=== PATIENT | male | born 1960 | race Caucasian/White ===

== ENCOUNTER 2019-04-09 16:19 | Inpatient (IN) ==
[2019-04-09] MEDS: *HR* Metformin 500 MG TABLET PO SCH (21:22)
[2019-04-09] MEDS: Gabapentin 300 MG CAPSULE PO SCH (21:22)
[2019-04-09] MEDS: *HR* OxyCODONE Immed Rel 5 MG TABLET PO PRN (21:26)
--- NOTE | 2019-04-10 08:18 | Internal Med History&Physical ---
Date of Encounter: 04/10/19 Time of Encounter: 07:45 Assessment and Plan (1) Diverticulitis Current visit: No Status: Acute Status post resection with colostomy. Augmentin with probiotic will be given for 7 days as per discharge summary from [facility]. (2) Hypertension Current visit: Yes Status: Chronic Continue Cozaar Qualifiers: Hypertension type: essential hypertension Qualified Code(s): I10 - Essential (primary) hypertension (3) SRINIVAS (obstructive sleep apnea) Current visit: Yes Status: Chronic Continue CPAP at bedtime (4) DM type 2 (diabetes mellitus, type 2) Current visit: Yes Status: Chronic Continue Trulicity, Jardiance, and Actos. Qualifiers: Diabetes mellitus long term care pharmacist insulin use: without fci use Diabetes mellitus complication status: without complication Qualified Code(s): E11.9 - Type 2 diabetes mellitus without complications (5) Hypothyroidism Current visit: Yes Status: Chronic Continue Synthroid Qualifiers: Hypothyroidism type: unspecified Qualified Code(s): E03.9 - Hypothyroidism, unspecified (6) Hyperlipidemia Current visit: Yes Status: Chronic Continue atorvastatin Qualifiers: Hyperlipidemia type: unspecified Qualified Code(s): E78.5 - Hyperlipidemia, unspecified (7) B12 deficiency Current visit: Yes Status: Chronic Continue B12 supplementation. Internal Medicine - H&P: HPI Chief complaint: Perforated diverticulum Admitted From: Hospital to Hospital Transfer Plans for Post Hospital Care: Home History of present illness: Mr. Odell is a 58 year old male who was transferred to [facility] swing bed after [facility] stay April 02- after presenting with perforated diverticulitis. He underwent sigmoid resection and colostomy formation. He reports approximately 15 cm of colon was resected. His postop course was unremarkable and he was discharged to [facility] swing bed for rehabilitation therapy prior to returning to independent living. GI history is pertinent for remote appendectomy. He has had 3 colonoscopies with most recent one 2016. No significant pathology other than diverticular disease has been seen. He denies disorders of his liver gallbladder or exocrine pancreas. Past Med Surg Social Fam HX - Past Medical History Medical history: arthritis, diabetes, hyperlipidemia, hypertension, other Additional medical history: SRINIVAS, neuropathy Psychiatric history: no psych history - Past Surgical History Surgical History: appendectomy Additional surgical history: rotator cuff repair bilat - Social History Smoking Status: Former smoker Smokeless Tobacco Status: No Alcohol use: none Drug use: none - Family History Mother Living Status: Hx Family Neurologic Disorders: Yes Internal Medicine - H&P: Meds Ascorbate Calcium [Vitamin C] 500 mg PO DAILY 04/11/16 [History] Aspirin 81 mg PO DAILY 04/11/16 [History] Pravastatin Sodium [Pravachol] 80 mg PO DAILY 04/11/16 [History] Empagliflozin [Jardiance] 25 mg PO DAILY 08/27/17 [History] Cyanocobalamin (B-12) [Vitamin B12] 1,000 mcg IM PRADO 04/04/19 [History] Dulaglutide [Trulicity] 1.5 mg SQ PRADO 04/04/19 [History] Irbesartan [Avapro] 300 mg PO DAILY 04/04/19 [History] Levothyroxine [Synthroid] 175 mcg PO QAM 04/04/19 [History] Meloxicam 15 mg PO DAILY 04/04/19 [History] Metformin HCl [Fortamet] 1,000 mg PO BID 04/04/19 [History] Nebivolol HCl [Bystolic] 10 mg PO DAILY 04/04/19 [History] Pioglitazone HCl 45 mg PO DAILY 04/04/19 [History] Gabapentin [Neurontin] 300 mg PO TID 30 Days #90 capsule 04/09/19 [Rx] Levothyroxine [Synthroid] 150 mcg PO 0630 30 Days #30 tablet 04/09/19 [Rx] Losartan [Cozaar] 50 mg PO DAILY 30 Days #30 tablet 04/09/19 [Rx] Nebivolol [Bystolic] 5 mg PO DAILY 30 Days #30 tablet 04/09/19 [Rx] OxyCODONE Immed Rel [Roxicodone 5 MG] 5 mg PO Q6HR PRN 7 Days #28 tablet 04/09/19 [Rx] Allergy/AdvReac Type Severity Reaction Status Date / Time Sulfa (Sulfonamide Allergy Difficulty Verified 04/04/19 16:58 Antibiotics) Breathing All Systems PM: A 10-system review of systems was performed and is negative for pertinent findings except as documented above in the HPI. Review of systems: Gen.: He states his weight has increased approximately 13 pounds in the past year Cardiovascular: He has history of hypertension but denies ME heart failure angina DVT or pulmonary embolus Respiratory: He smoked from age [age] up to 2 and half packs per day. He denies chronic lung disease. He has lung nodules which have been stable on follow-up exam. He has SRINIVAS and uses CPAP at bedtime GI: As per history of present illness : He has had microscopic hematuria with workup showing no significant pathology. He denies other disorders of his kidneys bladder or prostate Neurologic: He denies large distribution strokes or seizures. Endocrine: He was diagnosed with DM 2 approximately 2017. 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 He has history of B12 deficiency. He denies internal malignancies or other blood disorders. Psychiatric: He denies anxiety depression or other mental health issues [place] skeletal: He has DJD but denies gout or other bone joint or muscle disorders. - Constitutional Vitals: Temp Pulse Resp BP Pulse Ox 98.1 F 71 20 135/79 92 04/10/19 06:42 04/10/19 06:42 04/10/19 06:42 04/10/19 06:42 04/10/19 06:42 Exam: Gen.: He is a well-developed well-nourished male resting comfortably in bed who appears in no acute distress HEENT: Head is atraumatic and normocephalic. Eyes: EOMI. There is no scleral icterus. Mouth: Mucosa is moist. Neck: Supple and nontender. There is no thyromegaly or adenopathy noted. Heart: Regular without murmurs gallops or ectopics Lungs: No wheezes or crackles are heard. Abdomen: He has a colostomy with fecal material in the collection bag in the left mid abdominal area. There are nestor closing the surgical incision site with no significant drainage noted. The abdomen is slightly tender to palpat ion. Extremities: There is no cyanosis edema or clubbing noted. Dorsalis pedis and posterior tibial pulses are 1-2 over 2 bilaterally. He has significant resolving ecchymosis of his left medial forearm area which he reports is due to IV infiltration at [facility]. Neurologic: Mental status: He is talkative and a good historian. Cranial nerves: Smile is symmetric. Forehead wrinkles bilaterally. Tongue protrudes midline. EOMI. Motor: There is no pronator drift. Cerebellar: Finger to nose is intact bilaterally. Skin: Warm and dry
[2019-04-10] MEDS: *HR* Pioglitazone 15 MG TABLET PO SCH (08:24)
[2019-04-10] MEDS: Aspirin 81 MG TAB.CHEW PO SCH (08:25)
[2019-04-10] MEDS: *HR* Metformin 500 MG TABLET PO SCH ×2 (08:25→16:48)
[2019-04-10] MEDS: Gabapentin 300 MG CAPSULE PO SCH ×3 (08:25→20:33)
[2019-04-10] MEDS: Ascorbic Acid 500 MG TABLET PO SCH (08:25)
[2019-04-10] MEDS: *HR* OxyCODONE Immed Rel 5 MG TABLET PO PRN ×3 (08:26→20:33)
[2019-04-10] MEDS: Empagliflozin [Jardiance] 25 MG PO SCH (08:35)
[2019-04-10] MEDS: Lactobacillus 1 EACH CAP.SPRINK PO SCH ×2 (08:35→20:33)
[2019-04-10] MEDS: BYSTOLIC 10MG PO SCH (08:36)
[2019-04-10] MEDS ORDERED: IRBESARTAN 300 MG PO SCH (09:00)
[2019-04-10] MEDS ORDERED: *HR* Dextrose 50 % in Water (Syg) 50 ML SYRINGE IVP PRN (11:38)
[2019-04-10] MEDS ORDERED: D5% in Water 1,000 ML IVC PRN (11:38)
[2019-04-10] MEDS ORDERED: Dextrose Gel 15 GM/37.5 ML TUBE PO PRN ×2 (11:38)
[2019-04-10] MEDS: Insulin LISPRO 300 UNITS/3 ML VIAL SQ SCH ×3 (12:14→20:37)
[2019-04-11] MEDS ORDERED: Cyanocobalamin (B-12) 1,000 MCG/ML VIAL IM SCH (09:00)
[2019-04-11] MEDS: *HR* Pioglitazone 15 MG TABLET PO SCH (09:19)
[2019-04-11] MEDS: Ascorbic Acid 500 MG TABLET PO SCH (09:20)
[2019-04-11] MEDS: Lactobacillus 1 EACH CAP.SPRINK PO SCH ×2 (09:20→20:35)
[2019-04-11] MEDS: Gabapentin 300 MG CAPSULE PO SCH ×3 (09:20→20:35)
[2019-04-11] MEDS: Aspirin 81 MG TAB.CHEW PO SCH (09:20)
[2019-04-11] MEDS: Empagliflozin [Jardiance] 25 MG PO SCH (09:20)
[2019-04-11] MEDS: *HR* Metformin 500 MG TABLET PO SCH ×2 (09:20→16:37)
[2019-04-11] MEDS: BYSTOLIC 10MG PO SCH (09:21)
[2019-04-11] MEDS: Insulin LISPRO 300 UNITS/3 ML VIAL SQ SCH ×4 (09:23→20:12)
--- NOTE | 2019-04-11 11:59 | Internal Med Progress Note ---
Date of Encounter: 04/11/19 Time of Encounter: 11:55 - Assessment and plan (1) Diverticulitis Current Visit: No Status: Acute Assessment and plan: Feeling well from surgery fission looks clean and dry colostomy seems functional low redness is can seems reactional but we will get a CBC with differential in the morning. Into the Augmentin pain is controlled. (2) B12 deficiency Current Visit: Yes Status: Chronic Assessment and plan: We will check a B12 level continue supplementation he apparently schizoid B12 shot every week (3) Numbness in left leg Current Visit: Yes Status: Acute Assessment and plan: Busch surgically related. B12 and folate x-ray has building blocks until it. (4) Hypertension Current Visit: Yes Status: Chronic Assessment and plan: Controlled continue losartan Qualifiers: Hypertension type: essential hypertension Qualified Code(s): I10 - Essential (primary) hypertension (5) DM type 2 (diabetes mellitus, type 2) Current Visit: Yes Status: Chronic Assessment and plan: Controlled continue metformin follow-up labs continue Actos Qualifiers: Diabetes mellitus superintendent marine oil terminal insulin use: without skilled nursing use Diabetes m ellitus complication status: without complication Qualified Code(s): E11.9 - Type 2 diabetes mellitus without complications (6) Hypothyroidism Current Visit: Yes Status: Chronic Assessment and plan: Stable continue levothyroxin Qualifiers: Hypothyroidism type: unspecified Qualified Code(s): E03.9 - Hypothyroidism, unspecified (7) Hyperlipidemia Current Visit: Yes Status: Chronic Assessment and plan: Stable continue atorvastatin Qualifiers: Hyperlipidemia type: unspecified Qualified Code(s): E78.5 - Hyperlipidemia, unspecified - Time Spent With Patient 25 - 35 minutes - Subjective Interval history: 58-year-old male presented for swing bed after having a colectomy about 8 days ago because of a perforated diverticulum. His a swing bed but he noticed when he is walking today unless on the left lateral thigh. The area was nontender he can walk she surprised that he can feel the area. Nurse mentioned he had a little more drainage. And he has a little redness in that area on the skin. Is having stool on this colostomy. His incisions are clean and dry. His been on Neurontin for peripheral neuropathy and he might not noticed this lack of sensation. It is pride been there since surgery. We will get a B12 and folate level make sure he has building blocks needs to repair it. Answers questions concerns addressed. - Constitutional Vitals: Temp Pulse Resp BP Pulse Ox 98.1 F 69 16 118/69 94 04/11/19 06:47 04/11/19 06:47 04/11/19 06:47 04/11/19 06:47 04/11/19 06:47 Exam: General: Alert and oriented, no acute distress Lungs: Clear to auscultation bilaterally without wheezing or crackles Heart: Regular rate and rythms without murmer or rubs Abdomen: Soft, nontender, colostomy stool in the incision was clean and dry with nestor. Decreased bowel sounds. Extremities: no edema, slight redness in the skin just above the hip with normal sensation no tenderness Route low reactive to what is going on.. Consult Discharge Plan - Plan Referrals: Stewart Velasquez DO [Primary Care Provider] - 1 week
[2019-04-11] MEDS ORDERED: *HR* Dextrose 50 % in Water (Vial) 50 ML VIAL IVP PRN (13:15)
[2019-04-11 13:34] LABS: Folate 21.2 ng/mL (3.0-16.0)
[2019-04-11] MEDS ORDERED: Dulaglutide [Trulicity] 1.5 MG SQ SCH (18:44)
[2019-04-12 05:40] LABS: Basophils # 0.1 K/mcL (0.0-0.2); Basophils % 0.8 %; Eosinophils # 0.3 K/mcL (0.0-0.6); Eosinophils % 2.3 %; Hematocrit 42.9 % (37.5-50.1); Hemoglobin 14.1 g/dL (12.9-16.9); Immature Granulocytes % 2.6 % (0-4); Lymphocytes # 2.1 K/mcL (0.6-4.6); Lymphocytes % 15.6 %; Mean Corpuscular HGB Conc 32.9 g/dL (31.6-35.5); Mean Corpuscular Hemoglobin 29.4 pg (28.0-33.3); Mean Corpuscular Volume 89.6 fL (83.0-100.0); Mean Platelet Volume 9.3 fL (9.4-12.4); Monocytes # 0.9 K/mcL (0.0-1.3); Monocytes % 6.3 %; Neutrophils # 9.9 K/mcL (1.6-8.9); Platelet Count 317 K/mcL (140-400); Red Blood Count 4.79 M/mcL (4.19-5.50); Red Cell Distribution Width 12.3 % (11.5-14.5); Segmented Neutrophils % 72.4 %; White Blood Count 13.7 K/mcL (4.3-11.1)
[2019-04-12 06:03] LABS: BUN/Creatinine Ratio 22 (6-26); Blood Urea Nitrogen 18 mg/dL (8-23); Calcium 9.3 mg/dL (8.6-10.3); Carbon Dioxide 27 mEq/L (23-29); Chloride 98 mEq/L (98-107); Glucose 154 mg/dL (70-105); Osmolality,Calculated 283 (280-300); Potassium 4.3 mEq/L (3.5-5.1); Sodium 134 mEq/L (136-145); eGFR For African Americans > 60 (> 60); eGFR For Non-African Americans > 60 (> 60)
--- NOTE | 2019-04-12 09:41 | Internal Med Progress Note ---
Date of Encounter: 04/12/19 Time of Encounter: 09:25 - Assessment and plan (1) Diverticulitis Current Visit: No Status: Acute Assessment and plan: April 12. Status post resection with colostomy. Continue Augmentin and probiotic. (2) Hypertension Current Visit: Yes Status: Chronic Assessment and plan: April 12. Continue Cozaar Qualifiers: Hypertension type: essential hypertension Qualified Code(s): I10 - Essential (primary) hypertension (3) SRINIVAS (obstructive sleep apnea) Current Visit: Yes Status: Chronic Assessment and plan: April 12. Continue CPAP at at bedtime (4) DM type 2 (diabetes mellitus, type 2) Current Visit: Yes Status: Chronic Assessment and plan: April 12. Continue Trulicity, Jardiance, and Actos Qualifiers: Diabetes mellitus clinical pathologist insulin use: without clinical pathologist use Diabetes mellitus complication status: without complication Qualified Code(s): E11.9 - Type 2 diabetes mellitus without complications (5) Hypothyroidism Current Visit: Yes Status: Chronic Assessment and plan: April 12. Continue Synthroid. Qualifiers: Hypothyroidism type: unspecified Qualified Code(s): E03.9 - Hypothyroidism, unspecified (6) Hyperlipidemia Current Visit: Yes Status: Chronic Assessment and plan: April 12. Continue atorvastatin Qualifiers: Hyperlipidemia type: unspecified Qualified Code(s): E78.5 - Hyperlipidemia, unspecified (7) B12 deficiency Current Visit: Yes Status: Chronic Assessment and plan: April 12. Continue B12 injection weekly. (8) Meralgia paraesthetica Current Visit: Yes Status: Acute Assessment and plan: April 12. I explained to him this is not dangerous. Continue Mobic and Neurontin. Qualifiers: Laterality: left Qualified Code(s): G57.12 - Meralgia paresthetica, left lower limb - Subjective Interval history: April 12. He complains of burning in his left lateral thigh. He reports good ostomy output yesterday. - Constitutional Vitals: Temp Pulse Resp BP Pulse Ox 98.0 F 69 18 127/74 94 04/12/19 06:06 04/12/19 06:06 04/12/19 06:06 04/12/19 06:06 04/12/19 06:06 Exam: He is sitting in a chair at bedside resting currently. PRISCILA drain site shows slight erythema without significant drainage. Staple line shows no drainage. I reviewed his medications and lab results. Internal Medicine: Result - Labs CBC & Chem 7: 04/12/19 04:48 04/12/19 04:48 Labs: Short CBC 04/12/19 Range/Units 04:48 WBC 13.7 H (4.3-11.1) K/mcL Hgb 14.1 (12.9-16.9) g/dL Hct 42.9 (37.5-50.1) % Plt Count 317 D (140-400) K/mcL Neutrophils # 9.9 H (1.6-8.9) K/mcL BMP 04/12/19 04:48 Sodium 134 L Potassium 4.3 Chloride 98 Carbon Dioxide 27 BUN 18 Creatinine 0.83 Glucose 154 H Calcium 9.3 Consult Discharge Plan - Plan Referrals: Stewart Velasquez DO [Primary Care Provider] - 1 week
[2019-04-12] MEDS: BYSTOLIC 10MG PO SCH (09:47)
[2019-04-12] MEDS: Empagliflozin [Jardiance] 25 MG PO SCH (09:47)
[2019-04-12] MEDS: *HR* Pioglitazone 15 MG TABLET PO SCH (09:49)
[2019-04-12] MEDS: Gabapentin 300 MG CAPSULE PO SCH ×3 (09:49→20:45)
[2019-04-12] MEDS: Lactobacillus 1 EACH CAP.SPRINK PO SCH ×2 (09:50→20:45)
[2019-04-12] MEDS: *HR* Metformin 500 MG TABLET PO SCH ×2 (09:50→17:03)
[2019-04-12] MEDS: Insulin LISPRO 300 UNITS/3 ML VIAL SQ SCH ×4 (09:50→21:00)
[2019-04-12] MEDS: Ascorbic Acid 500 MG TABLET PO SCH (09:50)
[2019-04-12] MEDS: Aspirin 81 MG TAB.CHEW PO SCH (09:50)
[2019-04-12 09:55] LABS: Folate > 22.3 ng/mL (3.0-16.0); Vitamin B12 > 1500 pg/mL (250-1100)
[2019-04-13] MEDS: Insulin LISPRO 300 UNITS/3 ML VIAL SQ SCH ×4 (07:47→20:06)
[2019-04-13] MEDS: Ascorbic Acid 500 MG TABLET PO SCH (07:57)
[2019-04-13] MEDS: Gabapentin 300 MG CAPSULE PO SCH ×3 (07:58→19:56)
[2019-04-13] MEDS: *HR* Metformin 500 MG TABLET PO SCH ×2 (07:58→16:33)
[2019-04-13] MEDS: Lactobacillus 1 EACH CAP.SPRINK PO SCH ×2 (07:58→19:56)
[2019-04-13] MEDS: *HR* Pioglitazone 15 MG TABLET PO SCH (07:58)
[2019-04-13] MEDS: Aspirin 81 MG TAB.CHEW PO SCH (07:58)
[2019-04-13] MEDS: Empagliflozin [Jardiance] 25 MG PO SCH (07:59)
[2019-04-13] MEDS: *HR* OxyCODONE Immed Rel 5 MG TABLET PO PRN (20:54)
[2019-04-14 06:12] LABS: Basophils # 0.1 K/mcL (0.0-0.2); Basophils % 0.8 %; Eosinophils # 0.3 K/mcL (0.0-0.6); Eosinophils % 2.8 %; Hematocrit 43.8 % (37.5-50.1); Hemoglobin 14.2 g/dL (12.9-16.9); Immature Granulocytes % 2.7 % (0-4); Lymphocytes # 2.8 K/mcL (0.6-4.6); Lymphocytes % 23.6 %; Mean Corpuscular HGB Conc 32.4 g/dL (31.6-35.5); Mean Corpuscular Hemoglobin 29.2 pg (28.0-33.3); Mean Corpuscular Volume 90.1 fL (83.0-100.0); Mean Platelet Volume 9.6 fL (9.4-12.4); Monocytes # 0.8 K/mcL (0.0-1.3); Neutrophils # 7.6 K/mcL (1.6-8.9); Platelet Count 396 K/mcL (140-400); Red Blood Count 4.86 M/mcL (4.19-5.50); Red Cell Distribution Width 12.4 % (11.5-14.5); Segmented Neutrophils % 63.1 %
[2019-04-14] MEDS: Insulin LISPRO 300 UNITS/3 ML VIAL SQ SCH ×4 (08:18→20:48)
[2019-04-14] MEDS: Ascorbic Acid 500 MG TABLET PO SCH (08:20)
[2019-04-14] MEDS: Aspirin 81 MG TAB.CHEW PO SCH (08:20)
[2019-04-14] MEDS: Gabapentin 300 MG CAPSULE PO SCH ×3 (08:20→20:47)
[2019-04-14] MEDS: *HR* Pioglitazone 15 MG TABLET PO SCH (08:20)
[2019-04-14] MEDS: *HR* Metformin 500 MG TABLET PO SCH ×2 (08:20→17:56)
[2019-04-14] MEDS: Lactobacillus 1 EACH CAP.SPRINK PO SCH ×2 (08:21→20:47)
[2019-04-14] MEDS: Empagliflozin [Jardiance] 25 MG PO SCH (08:21)
--- NOTE | 2019-04-14 13:54 | Internal Med Progress Note ---
Date of Encounter: 04/14/19 Time of Encounter: 12:50 - Assessment and plan (1) Diverticulitis Current Visit: No Status: Acute Assessment and plan: April 12. Status post resection with colostomy. Continue Augmentin and probiotic. April 14. Will hold aspirin and Mobic due to bloody ostomy drainage. (2) Hypertension Current Visit: Yes Status: Chronic Assessment and plan: April 12. Continue Cozaar Qualifiers: Hypertension type: essential hypertension Qualified Code(s): I10 - Essential (primary) hypertension (3) SRINIVAS (obstructive sleep apnea) Current Visit: Yes Status: Chronic Assessment and plan: April 12. Continue CPAP at at bedtime (4) DM type 2 (diabetes mellitus, type 2) Current Visit: Yes Status: Chronic Assessment and plan: April 12. Continue Trulicity, Jardiance, and Actos Qualifiers: Diabetes mellitus [facility] insulin use: without dedicated intermodal truck driver use Diabetes mellitus complication status: without complication Qualified Code(s): E11.9 - Type 2 diabetes mellitus without complications (5) Hypothyroidism Current Visit: Yes Status: Chronic Assessment and plan: April 12. Continue Synthroid. Qualifiers: Hypothyroidism type: unspecified Qualified Code(s): E03.9 - Hypothyroidism, unspecified (6) Hyperlipidemia Current Visit: Yes Status: Chronic Assessment and plan: April 12. Continue atorvastatin Qualifiers: Hyperlipidemia type: unspecified Qualified Code(s): E78.5 - Hyperlipidemia, unspecified (7) B12 deficiency Current Visit: Yes Status: Chronic Assessment and plan: April 12. Continue B12 injection weekly. (8) Meralgia paraesthetica Current Visit: Yes Status: Acute Assessment and plan: April 12. I explained to him this is not dangerous. Continue Mobic and Neurontin. Qualifiers: Laterality: left Qualified Code(s): G57.12 - Meralgia paresthetica, left lower limb - Subjective Interval history: April 12. He complains of burning in his left lateral thigh. He reports good ostomy output yesterday. April 14. He has noticed some bright red blood streaks in his ostomy bag. Rep orts the left thigh pain is now intermittent rather than constant. - Constitutional Vitals: Temp Pulse Resp BP Pulse Ox 97.8 F 68 16 133/78 96 04/14/19 07:51 04/14/19 07:51 04/14/19 07:51 04/14/19 07:51 04/14/19 07:51 Exam: He is resting comfortably in bed and appears in no acute distress. There is a slight amount of bloody drainage in his ostomy bag. His abdomen is nontender to palpation. Bowel sounds are diminished. Extremities show no pitting edema. I reviewed his medications and lab results. Internal Medicine: Result - Labs CBC & Chem 7: 04/14/19 04:52 04/12/19 04:48 Labs: Short CBC 04/14/19 Range/Units 04:52 WBC 12.0 H (4.3-11.1) K/mcL Hgb 14.2 (12.9-16.9) g/dL Hct 43.8 (37.5-50.1) % Plt Count 396 (140-400) K/mcL Neutrophils # 7.6 (1.6-8.9) K/mcL Consult Discharge Plan - Plan Referrals: Stewart Velasquez DO [Primary Care Provider] - 1 week
[2019-04-15 07:23] VITALS: BP 120/70
[2019-04-15] MEDS: Ascorbic Acid 500 MG TABLET PO SCH (08:58)
[2019-04-15] MEDS: Gabapentin 300 MG CAPSULE PO SCH ×2 (08:58→14:10)
[2019-04-15] MEDS: Empagliflozin [Jardiance] 25 MG PO SCH (08:58)
[2019-04-15] MEDS: Lactobacillus 1 EACH CAP.SPRINK PO SCH (08:58)
[2019-04-15] MEDS: *HR* Pioglitazone 15 MG TABLET PO SCH (08:58)
[2019-04-15] MEDS: *HR* Metformin 500 MG TABLET PO SCH (08:58)
[2019-04-15] MEDS: Insulin LISPRO 300 UNITS/3 ML VIAL SQ SCH ×2 (09:00→12:32)
--- NOTE | 2019-04-15 14:29 | Discharge Summary ---
Date of Encounter: 04/15/19 Time of Encounter: 14:15 - Discharge Diagnosis (1) Diverticulitis Priority: Primary Status: Acute (2) Hypertension Priority: Secondary Status: Chronic Qualifiers: Hypertension type: essential hypertension Qualified Code(s): I10 - Essential (primary) hypertension (3) SRINIVAS (obstructive sleep apnea) Priority: Secondary Status: Chronic (4) DM type 2 (diabetes mellitus, type 2) Priority: Secondary Status: Chronic Qualifiers: Diabetes mellitus terminal press operator insulin use: without terminal press operator use Diabetes mellitus complication status: without complication Qualified Code(s): E11.9 - Type 2 diabetes mellitus without complications (5) Hypothyroidism Priority: Secondary Status: Chronic Qualifiers: Hypothyroidism type: unspecified Qualified Code(s): E03.9 - Hypothyroidism, unspecified (6) Hyperlipidemia Priority: Secondary Status: Chronic Qualifiers: Hyperlipidemia type: unspecified Qualified Code(s): E78.5 - Hyperlipidemia, unspecified (7) B12 deficiency Priority: Secondary Status: Chronic (8) Meralgia paraesthetica Priority: Secondary Status: Acute Qualifiers: Laterality: left Qualified Code(s): G57.12 - Meralgia paresthetica, left lower limb Hospital course: Mr. Odell is a 58 year old male who was transferred to [facility] swing bed after [facility] stay April 02- after presenting with perforated diverticulitis. He underwent sigmoid resection and colostomy formation. He reports approximately 15 cm of colon was resected. His postop course was unremarkable and he was discharged to [facility] swing bed for rehabilitation therapy prior to returning to independent living. Initial orders were written by the discharging physicians at [facility]. I saw him on April 10 and performed a swing bed history and physical. He was continued on antibiotic and probiotic. His colostomy functioned without difficulty. He had PT and OT evaluations with ongoing intervention and progressed well. He will need a front wheeled walker to assist in ambulation safety upon discharge due to the abdominal surgery with new colostomy. He had a scant amount of visible blood in his ostomy bag on April 14 so aspirin and Mobic were held. The bleeding resolved by the following day and his medications will be resumed. He complained of burning discomfort in his left lateral thigh but this had improved by day of discharge. On April 15 he stated he felt stable for discharge home. He will follow with his PCP Dr. Velasquez within 1 week. He will follow with his surgeon as directed. - Time Spent with Patient Total time spent providing and/or coordinating discharge services: - Discharge Medications Prescriptions: Continued Aspirin 81 mg PO DAILY Pravastatin Sodium [Pravachol] 80 mg PO DAILY Ascorbate Calcium [Vitamin C] 500 mg PO DAILY Empagliflozin [Jardiance] 25 mg PO DAILY Cyanocobalamin (B-12) [Vitamin B12] 1,000 mcg IM PRADO Dulaglutide [Trulicity] 1.5 mg SQ PRADO Irbesartan [Avapro] 300 mg PO DAILY Levothyroxine [Synthroid] 175 mcg PO QAM Meloxicam 15 mg PO DAILY Metformin HCl [Fortamet] 1,000 mg PO BID Nebivolol HCl [Bystolic] 10 mg PO DAILY Pioglitazone HCl 45 mg PO DAILY Nebivolol [Bystolic] 5 mg PO DAILY 30 Days #30 tablet Losartan [Cozaar] 50 mg PO DAILY 30 Days #30 tablet OxyCODONE Immed Rel [Roxicodone 5 MG] 5 mg PO Q6HR PRN 7 Days #28 tablet PRN Reason: Severe Pain Levothyroxine [Synthroid] 150 mcg PO 0630 30 Days #30 tablet Gabapentin [Neurontin] 300 mg PO TID 30 Days #90 capsule Home Medications: Ascorbate Calcium [Vitamin C] 500 mg PO DAILY 04/11/16 [History] Aspirin 81 mg PO DAILY 04/11/16 [History] Pravastatin Sodium [Pravachol] 80 mg PO DAILY 04/11/16 [History] Empagliflozin [Jardiance] 25 mg PO DAILY 08/27/17 [History] Cyanocobalamin (B-12) [Vitamin B12] 1,000 mcg IM PRADO 04/04/19 [History] Dulaglutide [Trulicity] 1.5 mg SQ PRADO 04/04/19 [History] Irbesartan [Avapro] 300 mg PO DAILY 04/04/19 [History] Levothyroxine [Synthroid] 175 mcg PO QAM 04/04/19 [History] Meloxicam 15 mg PO DAILY 04/04/19 [History] Metformin HCl [Fortamet] 1,000 mg PO BID 04/04/19 [History] Nebivolol HCl [Bystolic] 10 mg PO DAILY 04/04/19 [History] Pioglitazone HCl 45 mg PO DAILY 04/04/19 [History] Levothyroxine [Synthroid] 150 mcg PO 0630 30 Days #30 tablet 04/09/19 [Rx] Losartan [Cozaar] 50 mg PO DAILY 30 Days #30 tablet 04/09/19 [Rx] Nebivolol [Bystolic] 5 mg PO DAILY 30 Days #30 tablet 04/09/19 [Rx] OxyCODONE Immed Rel [Roxicodone 5 MG] 5 mg PO Q6HR PRN 7 Days #28 tablet 04/09/19 [Rx] Gabapentin [Neurontin] 300 mg PO TID 30 Days #90 capsule 04/15/19 [Rx] Allergies/Adverse Reactions: Allergy/AdvReac Type Severity Reaction Status Date / Time Sulfa (Sulfonamide Allergy Difficulty Verified 04/04/19 16:58 Antibiotics) Breathing Date of admission: 04/09/19 18:05 Primary care physician: Stewart Velasquez DO Consults: 04/09/19 18:38 Consult to Occupational Therapy [CONS] Routine Comment: Regain strength after surgery Reason for Consult: Regain strength and ability after surgery Does patient have active BEDREST order?: No Is patient medically & hemodynamically stable?: Yes Consult to Physical Therapy [CONS] Routine Comment: Regain strength after surgery Reason for Consult: Regain strength and ability after surgery Does patient have active BEDREST order?: No Is patient medically & hemodynamically stable?: Yes Consult to Software Licensing Analyst [CONS] Routine Reason for SW Consult: Swing bed - Constitutional Vitals: Temp Pulse Resp BP Pulse Ox 98.1 F 61 18 120/70 94 04/15/19 07:22 04/15/19 07:22 04/15/19 07:22 04/15/19 07:22 04/15/19 07:22 - Patient Status Disposition: Home Health Service - Discharge Instructions Follow Up With: Stewart Velasquez DO [Primary Care Provider] - 1 week - Diet and Activity Activity: as per physical therapy Diet: advance to your usual diet
--- NOTE | 2019-04-15 14:38 | Physician Discharge Referral ---
Home Health/Hosp Referral Info Transfer to: Home Health Attending Provider: Mariano Provider in Charge Post Discharge: PCP (Stewart Velasquez D.O.) - Diagnosis (1) Diverticulitis Priority: Primary Status: Acute (2) Hypertension Priority: Secondary Status: Chronic (3) SRINIVAS (obstructive sleep apnea) Priority: Secondary Status: Chronic (4) DM type 2 (diabetes mellitus, type 2) Priority: Secondary Status: Chronic (5) Hypothyroidism Priority: Secondary Status: Chronic (6) Hyperlipidemia Priority: Secondary Status: Chronic (7) B12 deficiency Priority: Secondary Status: Chronic (8) Meralgia paraesthetica Priority: Secondary Status: Acute - Respiratory Orders Smoking Cessation: Smoking cessation has been advised. For more information, call the [facility] Quit Line at 5-799-UNSF-NOW. - Diet/Nutrition Diet/Nutrition Orders: No Concentrated Sweets - Activity Activity Orders: Ambulate - Services Needed Following services are medically necessary services: Nursing, Home Health Aide, Physical Therapy, Occupational Therapy - Transfer Medications Prescriptions: Gabapentin [Neurontin] 300 mg PO TID 30 Days #90 capsule Home Medications: Ascorbate Calcium [Vitamin C] 500 mg PO DAILY 04/11/16 [History] Aspirin 81 mg PO DAILY 04/11/16 [History] Pravastatin Sodium [Pravachol] 80 mg PO DAILY 04/11/16 [History] Empagliflozin [Jardiance] 25 mg PO DAILY 08/27/17 [History] Cyanocobalamin (B-12) [Vitamin B12] 1,000 mcg IM PRADO 04/04/19 [History] Dulaglutide [Trulicity] 1.5 mg SQ PRADO 04/04/19 [History] Irbesartan [Avapro] 300 mg PO DAILY 04/04/19 [History] Levothyroxine [Synthroid] 175 mcg PO QAM 04/04/19 [History] Meloxicam 15 mg PO DAILY 04/04/19 [History] Metformin HCl [Fortamet] 1,000 mg PO BID 04/04/19 [History] Nebivolol HCl [Bystolic] 10 mg PO DAILY 04/04/19 [History] Pioglitazone HCl 45 mg PO DAILY 04/04/19 [History] Levothyroxine [Synthroid] 150 mcg PO 0630 30 Days #30 tablet 04/09/19 [Rx] Losartan [Cozaar] 50 mg PO DAILY 30 Days #30 tablet 04/09/19 [Rx] Nebivolol [Bystolic] 5 mg PO DAILY 30 Days #30 tablet 04/09/19 [Rx] OxyCODONE Immed Rel [Roxicodone 5 MG] 5 mg PO Q6HR PRN 7 Days #28 tablet 04/09/19 [Rx] Gabapentin [Neurontin] 300 mg PO TID 30 Days #90 capsule 04/15/19 [Rx] Allergies/Adverse Reactions: Allergy/AdvReac Type Severity Reaction Status Date / Time Sulfa (Sulfonamide Allergy Difficulty Verified 04/04/19 16:58 Antibiotics) Breathing Certification: Further, I certify that my clinical findings support that this patient is homebound (i.e. absences from home require considerable and taxing effort and are for medical reasons or anglican services or infrequently or short duration when for other reasons) because: Homebound Reason: Leaving home requires considerable and taxing effort due to condition (Diverticulitis with new colostomy) Attestation: My signature below is to certify that this patient is under my care and that I, or nurse practitioner, or a physician's legal administrative assistant working with me, has a [id number] encounter with this patient.
== END 2019-04-15 15:57 | disposition home health service (06) | DRG 949 ==
LOC: INPPIK 18:05
PROVIDERS: ADMIT Internal Medicine; ATTEND Internal Medicine